=== PATIENT | male | born 1990 | race Caucasian/White ===

== ENCOUNTER 2021-03-01 00:20 | Emergency (ER) | payer BC ==
[~2021-03-01] VITALS: Ht 198.1 cm; Wt 122.5 kg
[2021-03-01 00:53] VITALS: BP 112/68
[2021-03-01] MEDS ORDERED: ONDA4TAB10 PO (03:05)
[2021-03-01] MEDS ORDERED: METO-296 PO (03:05)
[2021-03-01 03:10] VITALS: BP 138/89
== END 2021-03-01 03:11 | disposition home or self-care (01) ==
LOC: EDH 00:20
DX: F10.129 Alcohol abuse with intoxication, unspecified (principal); E86.9 Volume depletion, unspecified; Z79.899 Other long term (current) drug therapy